=== PATIENT | male | born 1950 | race Caucasian/White ===

== ENCOUNTER 2016-12-10 10:39 | Emergency (ER) | payer OTHER, MEDICARE ==
[~2016-12-10] VITALS: Ht 185.4 cm; Wt 86.2 kg
[2016-12-10] MEDS ORDERED: ASPI-808 PO (11:11)
[2016-12-10] MEDS ORDERED: ACETAMINOPHEN 500 MG TAB (TYLENOL) PO ONE (11:15)
[2016-12-10] MEDS ORDERED: LIDOCAINE/EPI 1%-1:100,000 (XYLOCAINE) 20ML INJ ONE (11:15)
[2016-12-10] MEDS ORDERED: TETANUS,DIPTH,PERTUSS P/F (BOOSTRIX) 0.5 ML VIAL IM ONE (11:15)
--- NOTE | 2016-12-10 11:18 | ED Head Injury ---
General Chief Complaint: Laceration Stated Complaint: HEAD LAC Nursing Triage Note: to ER with complaints of laceration to the left upper forehead. Patient reports that he struck it on the back gate of his daughter's car. 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 Source: patient Exam Limitations: no limitations History of Present Illness Time seen by provider: 11:16 Initial Comments To ER with a laceration to the left side of his scalp just behind the hairline that occurred just prior to arrival when he struck his head on the closing automatic tailgate of his daughter's car. He hit it hard enough to set the alarm off on the car. He did not lose consciousness and he does have a headache. No nausea vomiting or dizziness and he does recall all events. Tetanus is not up-to-date. Occurred: just prior to arrival Severity: moderate Location: frontal Associated Systoms: Headaches Allergies and Home Medications Allergies Uncoded Allergies: SHELLFISH (Allergy, Severe, 12/10/16) Home Medications Aspirin 325 Mg Tablet, 325 MG PO DAILY, (Reported) Constitutional: see HPI Eyes: No Symptoms Reported Ears, Nose, Mouth, Throat: no symptoms reported Respiratory: no symptoms reported Cardiovascular: no symptoms reported Genitourinary: no symptoms reported Musculoskeletal: no symptoms reported Skin: no symptoms reported Psychiatric/Neurological: No Symptoms Reported Endocrine: No Symptoms Reported Past Uqbjcny-Gjtwhe-Zxwmkk Hx Patient Social History Alcohol Use: Rarely Uses Recreational Drug Use: No Smoking Status: Never a Smoker 2nd Hand Smoke Exposure: No Recent Foreign Travel: No Contact w/Someone Who Travel: No Recent Infectious Disease Expo: No Recent Hopitalizations: No Immunizations Up To Date Tetanus Booster (TDap): More than 5yrs Seasonal Allergies Seasonal Allergies: No Surgeries Surgeries: Appendectomy Physical Exam Vital Signs Vital Sign - Last 12Hours 12/10/16 11:05 Temp 98.2 Pulse 57 Resp 18 B/P (MAP) 121/83 Pulse Ox 94 O2 Delivery Room Air Capillary Refill : Less Than 3 Seconds General Appearance: WD/WN, no apparent distress HEENT: PERRL/EOMI, normal ENT inspection Neck: non-tender, full range of motion Respiratory: normal breath sounds, no respiratory distress, no accessory muscle use Gastrointestinal: normal bowel sounds, non tender, soft Extremities: normal range of motion, non-tender Psychiatric: alert, oriented x 3 Crainal Nerves: normal hearing, normal speech, PERRL Skin: normal color, warm/dry, other (4 cm laceration to the left side of the scalp just posterior to the hairline) Briana Coma Score Best Eye Response: (4) Open Spontaneously Best Verbal Response: (5) Oriented Best Motor Response: (6) Obeys Commands Briana Total: 15 Progress/Results/Core Measures Results/Orders My Orders Orders - JAVON HANSEN APRN Dipht,Pertuss(Acell),Tet Adult (Boostrix (12/10/16 11:15) Lidocaine/Epi 1% 1:100,000 (Xylocaine /E (12/10/16 11:15) Acetaminophen Tablet (Tylenol Tablet) (12/10/16 11:15) Ct Head Wo (12/10/16 11:14) Medications Given in ED Current Medications Medications Dose Ordered Sig/Av Route Start Time Stop Time Status Last Admin Dose Admin Acetaminophen 1,000 mg ONCE ONCE PO 12/10/16 11:15 12/10/16 11:16 DC 12/10/16 11:20 1,000 MG Diphtheria/ Tetanus/Acell Pertussis 0.5 ml ONCE ONCE IM 12/10/16 11:15 12/10/16 11:16 DC 12/10/16 11:21 0.5 ML Lidocaine/ Epinephrine 2 ml ONCE ONCE INJ 12/10/16 11:15 12/10/16 11:16 DC 12/10/16 11:22 2 ML Vital Signs/I&O Vital Sign - Last 12Hours 12/10/16 12/10/16 12/10/16 12/10/16 11:05 11:20 11:21 11:22 Temp 98.2 98.2 98.2 98.2 Pulse 57 Resp 18 B/P (MAP) 121/83 Pulse Ox 94 O2 Delivery Room Air Blood Pressure Mean: 96 Diagnostic Imaging Diagonstic Imaging: CT Comments NAME: GILBERTO ROSS REC#: [id number] PT STATUS: REG ER : 1950 PHYSICIAN: JAVON HANSEN APRN ADMIT DATE: 12/10/16/ER Draft Date of Exam:12/10/16 CT HEAD WO PROCEDURE: CT head without contrast. TECHNIQUE: Multiple contiguous axial images were obtained through the brain without the use of intravenous contrast. INDICATION: Laceration, hit head on door. COMPARISON: None available. FINDINGS: No intracranial hemorrhage. No intracranial mass, mass effect, midline shift, herniation, hydrocephalus, or extra-axial fluid collection. Periventricular and subcortical matter hypodensities are present, most consistent with minimal chronic small vessel white matter ischemic disease. No definite CT evidence of an acute ischemic infarction. Irregularity of the left frontal scalp is identified. The underlying calvarium is intact. Otherwise, the calvarium and extracalvarial soft tissues are unremarkable. Minimally visualized paranasal sinuses are clear. IMPRESSION: No acute intracranial abnormality. Left forehead laceration without underlying fracture or foreign body. Minimal chronic small vessel white matter ischemic disease. Dictated on workstation # [id number] Dict: 12/10/16 1130 Trans: 12/10/16 1138 [facility] [id number] Interpreted by: YASMIN FERMIN MD Electronically signed by: Departure Impression Impression: Primary Impression: Scalp laceration Disposition: 01 HOME, SELF-CARE Condition: Stable Departure-Patient Inst. Decision time for Depature: 11:17 Referrals: NO,LOCAL PHYSICIAN (PCP/Family) Primary Care Physician Patient Instructions: Laceration Repair With Bruna (DC) Add. Discharge Instructions: 1. Return to ER for any intolerable headaches, nausea or vomiting or confusion 2. Return to ER to have the bruna removed in 7 days 3. You may wash your hair gently starting tonight. All discharge instructions reviewed with patient and/or family. Voiced understanding. JAVON HANSEN APRN December 10, 2016 11:18
--- NOTE | 2016-12-10 11:39 | Diagnostic Imaging Report ---
PROCEDURE: CT head without contrast. TECHNIQUE: Multiple contiguous axial images were obtained through the brain without the use of intravenous contrast. INDICATION: Laceration, hit head on door. COMPARISON: None available. FINDINGS: No intracranial hemorrhage. No intracranial mass, mass effect, midline shift, herniation, hydrocephalus, or extra-axial fluid collection. Periventricular and subcortical matter hypodensities are present, most consistent with minimal chronic small vessel white matter ischemic disease. No definite CT evidence of an acute ischemic infarction. Irregularity of the left frontal scalp is identified. The underlying calvarium is intact. Otherwise, the calvarium and extracalvarial soft tissues are unremarkable. Minimally visualized paranasal sinuses are clear. IMPRESSION: No acute intracranial abnormality. Left forehead laceration without underlying fracture or foreign body. Minimal chronic small vessel white matter ischemic disease. Dictated by: Dictated on workstation # [id number]
[2016-12-10 11:45] VITALS: BP 121/83
== END 2016-12-10 11:45 | disposition home or self-care (01) ==
LOC: ER 10:41
DX: S01.01XA Laceration without foreign body of scalp, initial encounter (principal); Z23 Encounter for immunization; W22.8XXA Striking against or struck by other objects, initial encounter; Y99.8 Other external cause status
CPT/HCPCS: 12002; 70450; 90471; 90715

== ENCOUNTER 2016-12-18 12:20 | Emergency (ER) | payer OTHER, MEDICARE ==
[~2016-12-18] VITALS: Ht 185.4 cm; Wt 95.3 kg
[~2016-12-18 12:20] MED LIST: ASPI-808 PO
[2016-12-18 12:30] VITALS: BP 142/70
== END 2016-12-18 12:30 | disposition home or self-care (01) ==
LOC: EDUNIT# 12:20 → ER 12:23
DX: S01.01XD Laceration without foreign body of scalp, subsequent encounter (principal)

== ENCOUNTER 2017-10-12 10:43 | Outpatient (RCR) | payer MEDICARE | END 2018-01-07 | disposition home or self-care (01) | LOC: ONC 10:43 | PROVIDERS: ATTEND Radiology Radiation Oncology | DX: C61 Malignant neoplasm of prostate (principal) | CPT/HCPCS: 36415; 84153; 99205 ==

== ENCOUNTER → 2017-12-07 | Outpatient (CLI) | payer MEDICARE ==
[2017-12-07 09:00] LABS: BASOPHILS % (AUTO) 1 % (0-10); EOSINOPHILS # (AUTO) 0.2 10^3/uL (0.0-0.3); EOSINOPHILS % (AUTO) 4 % (0-10); HEMATOCRIT 47 % (40-54); HEMOGLOBIN 16.1 G/DL (13.3-17.7); LYMPHOCYTES # (AUTO) 1.2 X 10^3 (1.0-4.0); LYMPHOCYTES % (AUTO) 20 % (12-44); MEAN CORPUSCULAR HEMOGLOBIN 30 PG (25-34); MEAN CORPUSCULAR HGB CONC 34 G/DL (32-36); MEAN CORPUSCULAR VOLUME 87 FL (80-99); MEAN PLATELET VOLUME 8.7 FL (7.4-10.4); MONOCYTES # (AUTO) 0.7 X 10^3 (0.0-1.0); MONOCYTES % (AUTO) 12 % (0-12); NEUTROPHILS # (AUTO) 3.9 X 10^3 (1.8-7.8); NEUTROPHILS % (AUTO) 64 % (42-75); PLATELET COUNT 240 10^3/uL (130-400); RED BLOOD COUNT 5.36 10^6/uL (4.35-5.85); RED CELL DISTRIBUTION WIDTH 14.1 % (10.0-14.5); WHITE BLOOD COUNT 6.1 10^3/uL (4.3-11.0)
[2017-12-07 09:18] LABS: ALANINE AMINOTRANSFERASE 18 U/L (0-55); ALBUMIN 4.3 GM/DL (3.2-4.5); ALKALINE PHOSPHATASE 45 U/L (40-136); BILIRUBIN,TOTAL 0.6 MG/DL (0.1-1.0); BUN/CREATININE RATIO 15; CALCIUM 9.5 MG/DL (8.5-10.1); CARBON DIOXIDE 24 MMOL/L (21-32); CHLORIDE 108 MMOL/L (98-107); CHOLESTEROL 218 MG/DL (< 200); CREATININE SERUM 1.06 MG/DL (0.60-1.30); GFR ESTIMATED > 60; GLUCOSE 94 MG/DL (70-105); HDL CHOLESTEROL 45 MG/DL (40-60); POTASSIUM 4.3 MMOL/L (3.6-5.0); SODIUM 142 MMOL/L (135-145); TOTAL PROTEIN 6.6 GM/DL (6.4-8.2); TRIGLYCERIDES 131 MG/DL (<150); VLDL CHOLESTEROL 26 MG/DL (5-40)
[2017-12-10 08:13] LABS: HEPATITIS C ANTIBODY C Non-Reactive (Non-Reactive)
== END ==
LOC: LAB 08:37
PROVIDERS: ATTEND Physician Assistant
DX: R53.83 Other fatigue (principal); E78.4 Other hyperlipidemia; Z85.46 Personal history of malignant neoplasm of prostate
CPT/HCPCS: 36415; 80053; 80061; 84153; 85025; 86803

== ENCOUNTER → 2019-08-22 | Outpatient (CLI) | payer MEDICARE ==
--- NOTE | 2019-08-22 11:19 | Diagnostic Imaging Report ---
PROCEDURE: MRI right joint upper extremity without contrast. TECHNIQUE: Multiplanar, multisequence non contrast-enhanced MRI of the right upper extremity was accomplished. INDICATION: Right shoulder pain, chronic. COMPARISON: None. FINDINGS: No acute fracture or dislocation is seen in the right shoulder. Alignment is normal. There is no significant joint effusion. A small amount of fluid with small joint bodies are seen in the superior subscapularis recess. There is a full-thickness tear of the supraspinatus tendon measuring approximately 1.5 cm in width, with approximately 1.3 cm of retraction. There is tendinosis and additional high-grade partial thickness tearing of the supraspinatus tendon at the articular surface more medially. The infraspinatus tendon demonstrates mild tendinosis with no high-grade partial-thickness or full-thickness tears. There does appear to be low-grade partial intrasubstance tearing in the infraspinatus. The teres minor tendon is intact. The subscapularis tendon demonstrates tendinosis with low-grade intrasubstance tearing. There is a small amount of fluid in the subacromial and subdeltoid bursa. The long head of the biceps tendon appears normal in course and signal. The glenoid labrum is suboptimally evaluated without intra-articular contrast, however there does appear to be degenerative tearing present. No para-labral cyst is seen. The acromion has a curved undersurface without hooking. The coracoclavicular and coracoacromial ligaments are intact. There is severe degenerative change in the acromioclavicular joint. There is mild atrophy of the teres minor muscle. IMPRESSION: 1. Moderate-sized full-thickness tear of the right supraspinatus tendon with additional high-grade partial-thickness tearing. Additional low-grade partial-thickness tears are seen in the right rotator cuff. 2. Mild atrophy in the teres minor muscle. No mass or fluid collection is seen in the quadrilateral space. 3. Severe degenerative changes in the acromioclavicular joint. Dictated by: Dictated on workstation # [id number]
== END ==
LOC: RAD 09:42
PROVIDERS: ATTEND Orthopaedic Surgery
DX: M75.101 Unspecified rotator cuff tear or rupture of right shoulder, not specified as traumatic (principal); M62.521 Muscle wasting and atrophy, not elsewhere classified, right upper arm; M19.011 Primary osteoarthritis, right shoulder
CPT/HCPCS: 73221

== ENCOUNTER 2021-07-30 08:38 | Emergency (ER) | payer MEDICARE ==
[~2021-07-30] VITALS: Ht 185.4 cm; Wt 79.3 kg
[2021-07-30 08:59] LABS: BASOPHILS # (AUTO) 0.1 10^3/uL (0.0-0.1); BASOPHILS % (AUTO) 1 % (0-10); EOSINOPHILS # (AUTO) 0.2 10^3/uL (0.0-0.3); EOSINOPHILS % (AUTO) 2 % (0-10); HEMATOCRIT 50 % (40-54); HEMOGLOBIN 17.4 g/dL (13.3-17.7); LYMPHOCYTES # (AUTO) 1.3 10^3/uL (1.0-4.0); LYMPHOCYTES % (AUTO) 18 % (12-44); MEAN CORPUSCULAR HEMOGLOBIN 31 pg (25-34); MEAN CORPUSCULAR HGB CONC 35 g/dL (32-36); MEAN CORPUSCULAR VOLUME 88 fL (80-99); MEAN PLATELET VOLUME 8.5 fL (9.0-12.2); MONOCYTES # (AUTO) 0.9 10^3/uL (0.0-1.0); MONOCYTES % (AUTO) 13 % (0-12); NEUTROPHILS # (AUTO) 4.9 10^3/uL (1.8-7.8); NEUTROPHILS % (AUTO) 67 % (42-75); PLATELET COUNT 221 10^3/uL (130-400); WHITE BLOOD COUNT 7.4 10^3/uL (4.3-11.0)
--- NOTE | 2021-07-30 09:00 | ED Chest Pain ---
General Chief Complaint: Chest Pain Stated Complaint: CHEST/LEFT ARM/SHOULDER PAIN Nursing Triage Note: C/O 2-3 DAYS OF CONSTANT DULL CHEST PAIN WITH PAIN ALSO IN SHOULDER ADN ELBOW JOINTS DENIES SOB OR ANY OTHER SX Source: patient Exam Limitations: no limitations History of Present Illness Date Seen by Provider: Jul 30, 2021 Time Seen by Provider: 08:47 Initial Comments Patient is a 71-year-old male who presents to the emergency department today with a chief complaint of left lower chest discomfort that he describes as just "discomfort". He states there is a "numbness" in his chest that also seems to radiate up into his left shoulder and he has some discomfort in the left medial epicondyle as well. No shortness of breath, dizziness, lightheadedness, nausea or diaphoresis. He has never had any symptoms like this before. The patient has no medical history. He does not take any daily medications. He is a non- smoker. He denies any recent trauma but states that he plays a lot of golf. No recent illnesses, he did have Covid in February. He was vaccinated just 1 week prior to his diagnosis of Covid. Denies abdominal pain, diarrhea or urinary complaints. No swelling in his legs. He states the pain has been constant and not alleviated by rest. It is not exacerbated by any type of exertion. He has not taken anything for it. All other review of systems reviewed and negative except as stated. 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 NTG SL PRESSURIZER: No Associated Symptoms: denies symptoms Allergies and Home Medications Allergies Uncoded Allergies: SHELLFISH (Allergy, Severe, 12/10/16) Patient Home Medication List Home Medication List Reviewed: Yes Aspirin (Aspirin) 325 Mg Tablet, 325 MG PO DAILY, (Reported) Entered as Reported by: MAJO JUNIOR on 12/10/16 1111 Review of Systems Review of Systems Constitutional: see HPI EENTM: No Symptoms Reported Respiratory: No Symptoms Reported Cardiovascular: Chest Pain Gastrointestinal: No Symptoms Reported Genitourinary: No Symptoms Reported Musculoskeletal: joint pain (Medial left elbow pain) Skin: no symptoms reported Psychiatric/Neurological: No Symptoms Reported All Other Systems Reviewed Negative Unless Noted: Yes Past Xcrtjum-Bbvpnx-Ikolba Hx Immunizations Up To Date Tetanus Booster (TDap): More than 5yrs Seasonal Allergies Seasonal Allergies: No Past Medical History Surgeries: Yes Appendectomy Respiratory: No Cardiac: No Neurological: No Genitourinary: No Gastrointestinal: No Musculoskeletal: No Endocrine: No HEENT: No Cancer: No Psychosocial: No Integumentary: No Blood Disorders: No Physical Exam Vital Signs Vital Signs - First Documented 07/30/21 08:45 Temp 36.5 Pulse 63 Resp 16 B/P (MAP) 145/104 (118) Pulse Ox 96 O2 Delivery Room Air Capillary Refill : Height, Weight, BMI Height: 6'1.00" Weight: 210lbs. oz. 95.189296tf; 23.00 BMI Method:Stated General Appearance: No Apparent Distress, WD/WN HEENT: PERRL/EOMI Neck: Normal Inspection Respiratory: Lungs Clear, Normal Breath Sounds, No Accessory Muscle Use, No Respiratory Distress Cardiovascular: Regular Rate, Rhythm, Normal Peripheral Pulses Gastrointestinal: Normal Bowel Sounds, Non Tender, Soft Extremity: Normal Capillary Refill, Normal Inspection, Normal Range of Motion, Non Tender, No Calf Tenderness, No Pedal Edema, Other (No point tenderness over the medial epicondyle) Neurologic/Psychiatric: Alert, Oriented x3, No Motor/Sensory Deficits, Normal 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, 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 Norm as Tested Skin: Normal Color, Warm/Dry Progress/Results/Core Measures Results/Orders Lab Results Laboratory Tests Test 07/30/21 08:45 Range/Units White Blood Count 7.4 4.3-11.0 10^3/uL Red Blood Count 5.70 H 4.30-5.52 10^6/uL Hemoglobin 17.4 13.3-17.7 g/dL Hematocrit 50 40-54 % Mean Corpuscular Volume 88 80-99 fL Mean Corpuscular Hemoglobin 31 25-34 pg Mean Corpuscular Hemoglobin Concent 35 32-36 g/dL Red Cell Distribution Width 13.2 10.0-14.5 % Platelet Count 221 130-400 10^3/uL Mean Platelet Volume 8.5 L 9.0-12.2 fL Immature Granulocyte % (Auto) 0 % Neutrophils (%) (Auto) 67 42-75 % Lymphocytes (%) (Auto) 18 12-44 % Monocytes (%) (Auto) 13 H 0-12 % Eosinophils (%) (Auto) 2 0-10 % Basophils (%) (Auto) 1 0-10 % Neutrophils # (Auto) 4.9 1.8-7.8 10^3/uL Lymphocytes # (Auto) 1.3 1.0-4.0 10^3/uL Monocytes # (Auto) 0.9 0.0-1.0 10^3/uL Eosinophils # (Auto) 0.2 0.0-0.3 10^3/uL Basophils # (Auto) 0.1 0.0-0.1 10^3/uL Immature Granulocyte # (Auto) 0.0 0.0-0.1 10^3/uL Prothrombin Time 13.3 12.2-14.7 SEC INR Comment 1.0 0.8-1.4 Activated Partial Thromboplast Time 26 24-35 SEC Sodium Level 139 135-145 MMOL/L Potassium Level 4.3 3.6-5.0 MMOL/L Chloride Level 103 98-107 MMOL/L Carbon Dioxide Level 26 21-32 MMOL/L Anion Gap 10 5-14 MMOL/L Blood Urea Nitrogen 18 7-18 MG/DL Creatinine 0.97 0.60-1.30 MG/DL Estimat Glomerular Filtration Rate 76 BUN/Creatinine Ratio 19 Glucose Level 76 70-105 MG/DL Calcium Level 9.4 8.5-10.1 MG/DL Troponin I < 0.028 <0.028 NG/ML My Orders Orders - STEVO BLACK MD Ed Iv/Invasive Line Start (07/30/21 08:55) Cbc With Automated Diff (07/30/21 08:55) Basic Metabolic Panel (07/30/21 08:55) Protime With Inr (07/30/21 08:55) Partial Thromboplastin Time (07/30/21 08:55) Troponin I Windy (07/30/21 08:55) Ekg Tracing (07/30/21 08:55) Chest 1 View, Ap/Pa Only (07/30/21 08:55) Ketorolac Injection (Toradol Injection) (07/30/21 09:45) Vital Signs/I&O 07/30/21 07/30/21 08:45 10:02 Temp 36.5 Pulse 63 59 Resp 16 14 B/P (MAP) 145/104 (118) 137/105 Pulse Ox 96 95 O2 Delivery Room Air Room Air Blood Pressure Mean: 118 Progress Progress Note : Time: 09:39 Progress Note Patient seen and evaluated, 71-year-old with constant chest discomfort for the last 3 days. Evaluation today includes a physical exam, CBC, chemistry, coagulation profile, troponin level, EKG and chest x-ray. His labs are reviewed and are completely within normal limits. Troponin is negative. This especially in light of the fact that the chest pain has been completely constant for 3 days with no waxing and waning symptoms is reassuring that he has no acute ischemic event in process. His chest x-ray is clear. His vital signs are stable. His blood pressure is up a little bit. We will give the patient a little bit of Toradol for his discomfort. I have given him return precautions. He is comfortable with the plan of care. All questions are sought and answered. Patient is stable for discharge. Initial ECG Impression Date: Jul 30, 2021 Initial ECG Impression Time: 08:45 Initial ECG Rate: 62 Initial ECG Rhythm: Normal Sinus Initial ECG Intervals: Normal Initial ECG Intervals SD interval 184 QRS 98 QTc 393 Comment Patient has deep S waves in the inferior leads. Poor R wave progression over the precordium, no ST segment elevation or depression, no ectopy Diagnostic Imaging Diagonstic Imaging: Xray Plain Films/CT/US/NM/MRI: chest Comments chest xray : WNL - interpreted by me [facility], [place] NAME: GILBERTO ROSS [facility] REC#: [id number] PT STATUS: DEP ER : 1950 PHYSICIAN: STEVO BLACK MD ADMIT DATE: 07/30/21/ER Signed Date of Exam:07/30/21 CHEST 1 VIEW, AP/PA ONLY Portable erect AP chest at 9:35 AM INDICATION: Chest pain COMPARISON: There are no prior studies available for comparison. The heart size is within normal limits. There is a vague area of slightly increased density overlying the right lung base and a very small area of slightly increased density in the left lung base. These findings do suggest mild pneumonia/atelectasis. The lungs are otherwise clear. There is no pleural effusion identified. The mediastinum is not widened. The osseous structures are intact. IMPRESSION: The findings do suggest mild bibasilar atelectasis/infiltrate with greater involvement on the right. Dictated by: Dictated on workstation # [id number] Dict: 07/30/21 0935 Trans: 07/30/212224 [facility] [id number] Interpreted by: YOSHI RODAS MD Electronically signed by: YOSHI RODAS MD 07/30/212224 Reviewed: Reviewed by Me Departure Impression Primary Impression: Chest pain Qualified Codes: R07.9 - Chest pain, unspecified Disposition: HOME, SELF-CARE Condition: Stable Departure-Patient Inst. Decision time for Depature: 09:41 Referrals: NO,LOCAL PHYSICIAN (PCP/Family) Primary Care Physician Patient Instructions: Chest Pain That Is Not Caused by the Heart (DC) Add. Discharge Instructions: You can take xhtf-tes-eurvyxr Tylenol or ibuprofen as directed on the bottle every 6 hours for discomfort. If you notice that the pain is worsening instead of getting better, if you develop other symptoms with the chest discomfort such as sweating, shortness of breath, nausea or a change in quality of the pain please come back to the emergency room for reevaluation. Please follow-up with your primary care physician for further evaluation of your blood pressure. STEVO BLACK MD Jul 30, 2021 09:00
[2021-07-30 09:02] LABS: CHLORIDE 103 MMOL/L (98-107); POTASSIUM 4.3 MMOL/L (3.6-5.0); SODIUM 139 MMOL/L (135-145)
[2021-07-30 09:03] LABS: CALCIUM 9.4 MG/DL (8.5-10.1)
[2021-07-30 09:04] LABS: GLUCOSE 76 MG/DL (70-105)
[2021-07-30 09:05] LABS: CARBON DIOXIDE 26 MMOL/L (21-32)
[2021-07-30 09:08] LABS: BUN/CREATININE RATIO 19; CREATININE SERUM 0.97 MG/DL (0.60-1.30); GFR ESTIMATED 76; PROTHROMBIN TIME PATIENT 13.3 SEC (12.2-14.7)
[2021-07-30] MEDS ORDERED: KETOROLAC 30 MG/ML VIAL IVP ONE (09:45)
--- NOTE | 2021-07-30 09:49 | Diagnostic Imaging Report ---
Portable erect AP chest at 9:35 AM INDICATION: Chest pain COMPARISON: There are no prior studies available for comparison. The heart size is within normal limits. There is a vague area of slightly increased density overlying the right lung base and a very small area of slightly increased density in the left lung base. These findings do suggest mild pneumonia/atelectasis. The lungs are otherwise clear. There is no pleural effusion identified. The mediastinum is not widened. The osseous structures are intact. IMPRESSION: The findings do suggest mild bibasilar atelectasis/infiltrate with greater involvement on the right. Dictated by: Dictated on workstation # [id number]
[2021-07-30 10:02] VITALS: BP 137/105
== END 2021-07-30 10:03 | disposition home or self-care (01) ==
LOC: EDUNIT# 08:38 → ER 08:40
DX: R07.9 Chest pain, unspecified (principal); Z79.82 Long term (current) use of aspirin
CPT/HCPCS: 36415; 71045; 80048; 84484; 85025; 85610; 85730; 93005

== ENCOUNTER 2022-01-09 13:06 | Outpatient (RCR) | payer MEDICARE | END 2022-01-26 | disposition home or self-care (01) | LOC: ONC 13:06 | PROVIDERS: ATTEND Radiology Radiation Oncology | DX: C61 Malignant neoplasm of prostate (principal) | CPT/HCPCS: 99204 ==

== ENCOUNTER 2022-03-28 08:38 | Outpatient (RCR) | payer MEDICARE ==
[2022-03-28 09:12] LABS: ALBUMIN 4.2 GM/DL (3.2-4.5); BILIRUBIN,TOTAL 0.8 MG/DL (0.1-1.0); CALCIUM 9.3 MG/DL (8.5-10.1); CREATININE SERUM 1.19 MG/DL (0.60-1.30); POTASSIUM 4.1 MMOL/L (3.6-5.0); TOTAL PROTEIN 6.9 GM/DL (6.4-8.2)
== END 2022-03-29 | disposition home or self-care (01) ==
LOC: ONC 08:38
PROVIDERS: ATTEND Radiology Radiation Oncology
DX: C61 Malignant neoplasm of prostate (principal); Z80.42 Family history of malignant neoplasm of prostate; Z12.5 Encounter for screening for malignant neoplasm of prostate
CPT/HCPCS: 80053; G0103; 84153

== ENCOUNTER 2022-03-30 11:04 | Outpatient (RCR) | payer MEDICARE | END 2022-04-28 | disposition home or self-care (01) | LOC: ONC 11:04 | PROVIDERS: ATTEND Radiology Radiation Oncology | DX: C61 Malignant neoplasm of prostate (principal) | CPT/HCPCS: 99213 ==

== ENCOUNTER 2022-08-10 10:30 | Outpatient (RCR) | payer MEDICARE | END 2022-08-29 | disposition home or self-care (01) | LOC: ONC 10:30 | PROVIDERS: ATTEND Radiology Radiation Oncology | DX: C61 Malignant neoplasm of prostate (principal) | CPT/HCPCS: 36415; 84153; 99213 ==

== ENCOUNTER → 2023-03-01 | Outpatient (CLI) | payer MEDICARE ==
[~2023-03-01] MED LIST changes: +CATHETER FLUSH 10 ML SYR IVP PRN
--- NOTE | 2023-03-01 16:20 | Diagnostic Imaging Report ---
INDICATION: Initial staging prostate carcinoma. TECHNIQUE: Patient was administered 9.4 mCi F-18 Pylarify in the left antecubital location and PET imaging was performed from the top of the skull to mid thighs. Noncontrast CT was also performed for attenuation correction and anatomic correlation. COMPARISON: No prior studies are available for comparison. FINDINGS: Normal physiologic activity within the lacrimal and salivary glands is noted. No mediastinal, hilar or pulmonary parenchymal uptake is identified. No abnormal uptake in the abdomen or pelvis is identified. IMPRESSION: No abnormality identified. Dictated by: Dictated on workstation # [id number]
== END ==
LOC: RAD 12:15
PROVIDERS: ATTEND Radiology Radiation Oncology
DX: C61 Malignant neoplasm of prostate (principal)
CPT/HCPCS: 78815; A9595

== ENCOUNTER 2023-03-08 11:34 | Outpatient (RCR) | payer MEDICARE ==
[~2023-03-08 11:34] MED LIST changes: -CATHETER FLUSH 10 ML SYR IVP PRN
== END 2023-03-29 | disposition home or self-care (01) ==
LOC: ONC 11:34
PROVIDERS: ATTEND Radiology Radiation Oncology
DX: C61 Malignant neoplasm of prostate (principal)
CPT/HCPCS: 99213

== ENCOUNTER 2023-03-21 05:37 | Outpatient (CLI) | payer MEDICARE ==
[~2023-03-21] VITALS: Ht 182.9 cm; Wt 76.7 kg
== END 2023-04-05 13:34 | disposition home or self-care (01) ==
LOC: PREOP 05:37
PROVIDERS: ATTEND Internal Medicine
DX: Z01.818 Encounter for other preprocedural examination (principal)

== ENCOUNTER 2023-04-13 08:52 | Day surgery (SDC) | payer MEDICARE ==
--- NOTE | 2023-03-17 06:02 | HISTORY AND PHYSICAL ---
DATE OF SERVICE: 03/30/2023 COLONOSCOPY HISTORY AND PHYSICAL REFERRING PHYSICIAN Harvey Simpson MD HISTORY OF PRESENT ILLNESS: The patient is a spry 72-year-old white male referred for surveillance colonoscopy. He reports his first colonoscopy about 15 years ago, at which time he had what sounds like dysplastic polyps removed. He was told they were within a year of turning into malignancy. He had been early colonoscopy and has had several other polyps removed. None reportedly dysplastic, his last colonoscopy 6 years ago where he may have had a polyp removed. He does not recall. 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 Unfortunately, does qualify for PSA failure as his PSA has slowly been going up, last level is 0.3. He had a PET scan that did not reveal any evidence for microscopic disease earlier this summer and he is contemplating salvage radiation therapy at this time. He feels well otherwise and he has had no change in bowel habits. Denies bright red blood per rectum, melena or abdominal pain. PAST SURGICAL HISTORY: In the distant history, he has had some knee surgery and underwent prostatectomy 5 years ago. This was complicated by erectile dysfunction, but he is able to achieve an erection on Viagra, his only prescription medication. SOCIAL HISTORY: He is retired with no past smoking or drinking history. FAMILY HISTORY: Not aware of any family history for GI tract malignancy. REVIEW OF SYSTEMS: CONSTITUTIONAL: Denies night sweats, chills, fever or change in weight. PULMONARY: Denies cough, wheezing or shortness of breath. GASTROINTESTINAL: As per HPI. CARDIOVASCULAR: Denies chest discomfort, orthopnea, PND, pedal edema or syncope. PHYSICAL EXAMINATION: GENERAL: Reveals the sclerae appearing white male in no acute distress. VITAL SIGNS: Weight 159 pounds, blood pressure 110/70. HEENT: Unremarkable. Sclerae nonicteric. CHEST: Clear to auscultation. CARDIOVASCULAR: Reveals regular rate and rhythm without murmur, S3, or S4. ABDOMEN: Soft, supple without mass, organomegaly, or tenderness. EXTREMITIES: Revealed no cyanosis, clubbing or edema. ASSESSMENT AND PLAN: The patient is being set up for surveillance colonoscopy due to past history of colon polyps. Prep instructions were given and questions were answered. Thank you for referral of this pleasant gentleman. Job ID: [id number] DocumentID: [id number] Dictated Date: 03/15/2023 09:58:59 Database Admin Date: 03/15/2023 10:26:00 Dictated By: PAYAM LOIUS MD
[~2023-04-13] VITALS: Ht 183 cm; Wt 76.7 kg
[2023-04-13] MEDS ORDERED: LACTATED RINGERS 1,000 ML 1,000 ML IV STA (08:58)
[2023-04-13 09:12] VITALS: BP 116/79
[2023-04-13 09:17] VITALS: BP 116/79
--- NOTE | 2023-04-13 09:42 | Pre-Op Note & Conscious Sedat ---
Pre-Operative Progress Note Date H&P Reviewed: Apr 13, 2023 Time H&P Reviewed: 09:41 History & Physical: H&P Reviewed, Patient Examed, No changes noted Pre-Op Diagnosis: hx of colon polyps Moderate Sedation PreProcedure ASA Score 2 Airway Lungs Heart ASA score ASA 1: a normal healthy patient ASA 2: a patient with a mild systemic disease (mid diabetes, controlled hypertension, obesity ASA 3: a patient with a severe systemic disease that limits activity (angina, COPD, prior Myocardial infarction) ASA 4: a patient with an incapacitating disease that is a constant threat to life (CHF, renal failure) ASA 5: a moribund patient not expected to survive 24 hrs. (ruptured aneurysm) ASA 6: a declared brain- patient whose organs are being harvested. For emergent operations, add the letter E after the classification Mallampati Classification Grade 1 Sedation Plan Analgesia, Amnesia, Plan communicated to team members, Discussed options with patient/fam, Discussed risks with patient/fam The patient is an appropriate candidate to undergo the planned procedure, sedation, and anesthesia. The patient immediately re-assessed prior to indication. PAYAM LOUIS MD Apr 13, 2023 09:42
[2023-04-13 10:40] VITALS: BP 80/52
--- NOTE | 2023-04-13 10:41 | Progress Note-Post Operative ---
Post-Procedure Note Physician (s)/Industrial Maintenance Manager (s) Physician PAYAM LOUIS MD Pre-Procedure Diagnosis Pre-Procedure Diagnosis: hx of colon polyps Post-Procedure Diagnosis Post-operative diagnosis: Prior to undergoing colonoscopy digital rectal evaluation was performed. Anal sphincter tone was normal and the perianal reflexes intact. Other than surgical absence of the prostate no other abnormalities noted on digital inspection anal canal distal rectal vault. The colonoscope was then inserted into the rectum and under direct visualization advanced to the cecum. The cecum was notified by the indication of the Ileocecal valve cecal strap. Photographic documentation was obtained. A careful inspection was made as the colonoscope was withdrawn. quality the prep was good. Findings: There were no evidence for internal/external hemorrhoids and the rectum was unremarkable. Mild to moderate diverticular disease was noted confined to the sigmoid colon with no other sigmoid colonic adenitis being appreciated. The descending colon was normal. A 3 mm sessile polyp was noted at the splenic flexure was biopsied and ablated with no subsequent blood loss. There were 2 adjacent polyps 1 8 mm sessile the other 6 x 10 mm and sessile in the proximal transverse colon both were ablated and submitted for histopathology with no blood loss. The hepatic flexure ascending colon and cecum were unremarkable. Assessment 3 polyps removed removed today the most significant or adjacent in the proximal transverse colon all cauterized as noted above with no blood loss. As long as there are no surprises histopathology report would advocate consideration for repeat surveillance colonoscopy in 3 years. Mild diverticular disease confined to the sigmoid colon was present with no other abnormalities being noted on today's colonoscopy under good prep conditions. I thank you for the furl this pleasant gentleman sincerely Payam Louis MD. CC: Brien TAYL[facility]. PAYAM LOUIS MD Apr 13, 2023 10:41
[2023-04-13 10:45] VITALS: BP 86/55
[2023-04-13 10:55] VITALS: BP 83/60
[2023-04-13 11:11] VITALS: BP 83/60
--- NOTE | 2023-04-13 14:05 | Anesthesia-General Post-Op ---
MAC Patient Condition Mental Status/LOC: Same as Preop Cardiovascular: Satisfactory Nausea/Vomiting: Absent Respiratory: Satisfactory Pain: Controlled Complications: Absent Post Op Complications Complications None Follow Up Care/Instructions Patient Instructions None needed. Anesthesiology Discharge Order Discharge Order Patient was doing well after the procedure with no complaints, stable vital signs, no apparent adverse anesthesia problems. No complications reported per nursing. VIKTOR ROGERS DO Apr 13, 2023 14:05
== END 2023-04-13 11:27 | disposition home or self-care (01) ==
LOC: ENDO 08:52
PROVIDERS: ATTEND Internal Medicine
DX: Z12.11 Encounter for screening for malignant neoplasm of colon (principal); D12.3 Benign neoplasm of transverse colon; K63.5 Polyp of colon; K57.30 Diverticulosis of large intestine without perforation or abscess without bleeding; G47.33 Obstructive sleep apnea (adult) (pediatric); Z99.81 Dependence on supplemental oxygen